=== PATIENT | male | born 1965 | race Caucasian/White ===

== ENCOUNTER 2020-02-24 20:30 | Emergency (ER) | payer MEDICAID, SELFPAY ==
[2020-02-24 20:35] VITALS: BP 113/71; PULSE 107; RESP 17; TEMP 36.5; O2SAT 100; BMI 23.3
--- NOTE | 2020-02-24 20:43 | XRR_ITS ---
PROCEDURE INFORMATION: Exam: XR Right Femur Exam date and time: 02/24/2020 10:00 PM Age: 54 years old Clinical indication: Injury or trauma; Fall; Initial encounter; Blunt trauma; Thigh or upper leg; Bilateral TECHNIQUE: Imaging protocol: XR Right femur. Views: 2 views. COMPARISON: No relevant prior studies available. FINDINGS: Bones/joints: The cross-table lateral view is overpenetrated and a knee joint effusion cannot be evaluated. The bone density is appropriate. No acute fracture or dislocation. No bony destructive changes. Soft tissues: No foreign body. No gas in the soft tissues. Other findings: No periosteal reaction. No osteomyelitis. XR/XR femur RT min 2V* [id number] IMPRESSION: No acute bony abnormality.
--- NOTE | 2020-02-24 20:43 | CTR_ITS ---
PROCEDURE INFORMATION: Exam: CT Chest Without Contrast Exam date and time: 02/24/2020 8:49 PM Age: 54 years old Clinical indication: Injury or trauma; Injury history: Thrown from horse; Initial encounter; Generalized; Blunt trauma (contusions or hematomas); Prior surgery; Surgery type: Cabg, cholecystectomy, appendectomy TECHNIQUE: Imaging protocol: Computed tomography of the chest without contrast. Radiation optimization: All CT scans at this facility use at least one of these dose optimization techniques: automated exposure control; mA and/or kV adjustment per patient size (includes targeted exams where dose is matched to clinical indication); or iterative reconstruction. COMPARISON: No relevant prior studies available. RADIATION DOSE METRICS: Total DLP (mGy-cm): 1975.32 FINDINGS: Tubes, catheters and devices: There is a small amount of air in the right subclavian vein probably from the presence of the IV catheter in the right upper extremity. Lungs: There is mild ground-glass opacity in the lungs compatible with pneumonitis, edema and/or atelectasis. There is a 3 mm subpleural ground-glass nodule right lung image 15. Pleural space: Unremarkable. No pneumothorax. No pleural effusion. Heart: Sternotomy wires and mediastinal surgical clips are present, consistent with previous coronary arterial bypass grafting. Aorta: Unremarkable. No aortic aneurysm. Lymph nodes: Small perifissural lymph nodes are noted. Bones/joints: Unremarkable. No acute fracture. Soft tissues: Unremarkable. IMPRESSION: 1. There is mild ground-glass opacity in the lungs compatible with pneumonitis, edema and/or atelectasis. 2. There is a 3 mm subpleural ground-glass nodule right lung.No routine follow-up is indicated. (Daisy et al., Fleischner Society, 2017) PROCEDURE INFORMATION: Exam: CT Abdomen And Pelvis Without Contrast Exam date and time: 02/24/2020 8:49 PM Age: 54 years old Clinical indication: Injury or trauma; Injury history: Thrown from horse; Initial encounter; Generalized; Blunt trauma (contusions or hematomas); Prior surgery; Surgery type: Cabg, cholecystectomy, appendectomy TECHNIQUE: Imaging protocol: Computed tomography of the abdomen and pelvis without contrast. Radiation optimization: All CT scans at this facility use at least one of these dose optimization techniques: automated exposure control; mA and/or kV adjustment per patient size (includes targeted exams where dose is matched to clinical indication); or iterative reconstruction. COMPARISON: No relevant prior studies available. RADIATION DOSE METRICS: Total DLP (mGy-cm): 1974.32 FINDINGS: Liver: Unremarkable.No mass. Gallbladder and bile ducts: There has been a cholecystectomy. There is no common bile duct dilation. Pancreas: Normal. No ductal dilation. Spleen: Normal. No splenomegaly. Adrenals: There is bilateral adrenal thickening compatible with hyperplasia. Kidneys and ureters: There is no evidence of hydronephrosis. There is no evidence of renal calcifications. There is nonspecific mild left perinephric fat stranding. Stomach and bowel: There is no evidence of intestinal perforation or obstruction. Appendix: There has been an appendectomy. Intraperitoneal space: Unremarkable. No free air. No significant fluid collection. Vasculature: There is a satisfactory appearance of the aortobifem graft. Lymph nodes: Unremarkable.No enlarged lymph nodes. Bladder: The bladder is normal. Reproductive: Unremarkable as visualized. Bones/joints: Unremarkable. No acute fracture. Soft tissues: Unremarkable. CT/CT chest abd pel wo con IMPRESSION: No acute abnormality in the abdomen or pelvis. Radiation Dose CTDIVOL = (mGy): DLP = 1975.32~1975.32 (mGy-cm)
--- NOTE | 2020-02-24 20:44 | W.ED.TRAUMA ---
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 He states he is got head face neck chest and abdomen pain. He states most pain is in his left jaw though. He states pain is sharp in nature and rates a 6 out of 10. States he also has pain to his left thigh. He is able to ambulate. Associated symptoms: Reports abdominal pain, back pain, chest pain and headache(s); Denies chills, dental pain or fever(s) Review of Systems Const: Denies: fever(s), chills, body aches or change in appetite Eyes: Denies: blurry vision or eye discomfort ENMT: Denies: throat pain or dental pain Card: Reports: chest pain Resp: Denies: dyspnea GI: Reports: abdominal pain : Denies: dysuria Musc: Reports: neck pain and back pain Skin/Breast: Denies: rash Neuro: Reports: headache(s) Psych: Denies: depression Ulysses/Lymph: Denies: easy bruising All/Imm: Denies: urticaria Physical Exam Const: COMMON NORMALS: no acute distress, patient oriented x3 and healthy appearing HENMT: COMMON NORMALS: normocephalic HEAD & SCALP: normocephalic OTHER: Abrasion to forehead Eye: COMMON NORMALS: Equal, round and reactive pupils present and EOMs intact bilaterally PUPIL: Yes Equal, round and reactive pupils present Neck/C-Spine: COMMON NORMALS: full ROM and supple Chest: COMMONS NORMALS: normal inspection of the chest OTHER: Tenderness over left chest Resp: COMMON NORMALS: normal respiratory effort, No retractions, No use of accessory muscles and clear to auscultation bilaterally AUSCULTATION: clear to auscultation bilaterally Cardio: COMMON NORMALS: regular rate, regular rhythm and No murmurs present (Cardio) RATE: regular rate RHYTHM: regular rhythm GI: COMMON NORMALS: Normal to inspection, nondistended, normoactive bowel sounds present, Soft to palpation and no masses PALPATION: Yes Soft to palpation OTHER: Diffuse mild tenderness Back/Pelvis: OTHER: Tenderness along spine with no obvious deformity Extremity: COMMON NORMALS: normal to inspection and full ROM Neuro: COMMON NORMALS: patient oriented x3, moves all extremities and no focal motor deficits Psych: COMMON NORMALS: mental status grossly normal, Normal thought process present and cooperative THOUGHT PROCESS: Normal thought process present Skin: COMMON NORMALS: no rashes or lesions noted and no wounds GENERAL SKIN EXAM: no rashes or lesions noted Procedures Jaw Reduction Time Out Performed: Yes Pre-Treatment Medications Used: other Technique used: downward anterior traction Reduction successful: No Procedural Sedation Indication: fracture/dislocation reduction ASA Class: II Time of Last PO Intake: 18:20 Preparation: groundwater monitoring technician applied, pulse oximeter and supplemental O2 applied IV Propofol dose (mg): 200 Patient Tolerated Procedure: well Complications: none Additional Comments: Repeat conscious sedation was done at 1210 150 of propofol was given patient tolerated procedure well with no complications. Blood pressure and oxygen saturation remained normal. MDM - Trauma MDM Narrative: Medical decision making narrative: Patient presents with a jaw dislocation that I was unable to reduce. Likely due to the edema around the joint from injury. I spoke to dentist and maxillofacial surgeon Dr. Jimmy Freeman states that due to the edema this will not build to be reduced at this time. He recommended soft diet the patient to do jaw exercises and ice and he will see him in the office Thursday or Thursday and attempt reduction once the swelling is went down. I informed patient of this plan patient is to return if worsening. He understands and agrees to plan. Other CT findings were normal. Lab Data: Labs: Lab Results 02/24/20 02/24/20 Range/Units 20:52 20:52 WBC 14.6 H (4.0-10.0) 10^3/ uL RBC 5.10 (4.1-5.3) 10^6/u L Hgb 10.2 L (11.7-16.6) g/dL Hct 35.1 L (42.0-52.0) % MCV 68.8 L (80-94) fL MCH 20.0 L (28.0-34.0) pg MCHC 29.1 L (30.0-36.0) g/dL RDW 20.2 H (12.1-15.1) % Plt Count 313 (130-400) 10^3/c mm MPV 10.7 H (7.4-10.4) fL Neut % (Auto) 68.8 % Lymph % (Auto) 18.6 % Meigs % (Auto) 9.2 % Eos % (Auto) 1.5 % Baso % (Auto) 0.3 % Neut # (Auto) 10.04 H (1.8-7.7) 10^3/u L Lymph # (Auto) 2.7 (0.8-4.8) 10^3/u L Meigs # (Auto) 1.3 H (0.2-0.9) 10^3/u L Eos # (Auto) 0.2 (0.0-0.8) 10^3/u L Baso # (Auto) 0.1 (0.0-0.1) 10^3/u L Nucleated RBC % (a uto) 0 % Nucleated RBCs # 0.0 /100WBC Sodium 135 L (136-145) mmol/L Potassium 4.1 (3.5-5.1) mmol/L Chloride 103 (98-107) mmol/L Carbon Dioxide 21 L (22-29) mmol/L Anion Gap 15.1 (5-19) BUN 9 (6-20) mg/dL Creatinine 0.6 L (0.7-1.2) mg/dL GFR Calculation 140.9 H (90-130) mL/min Glucose 289 H (65-115) mg/dL Calculated Osmolal ity 287 (285-295) mOsm/k g Calcium 9.0 (8.5-10.5) mg/dL Total Bilirubin 0.2 (0.15-1.2) mg/dL AST 10 (0-40) U/L ALT 10 (0-41) U/L Alkaline Phosphata se 129 (40-130) IU/L Total Protein 6.7 (6.6-8.7) g/dL Albumin 3.7 (3.5-5.2) g/dL Globulin 3.0 (1.3-4.6) g/dL Imaging Data^: CT Head: Attestation: I personally reviewed and interpreted this imaging study as follows: Radiologist's impression: [address] [address] [address] Scan Report Signed Patient: Cornell Hein Unit #: [id number] : 1965 Age/Sex: 54 / M ADM Date: 02/24/20 Loc: ER Room/Bed: Attending Dr: Ordering Provider/Ordering MD: Esmer Carson MD Date of Service: 02/24/20 Procedure(s): CT head wo con* [id number] Accession Number(s): [id number] Report Number: [id number] PROCEDURE INFORMATION: Exam: CT Head Without Contrast Exam date and time: 02/24/2020 8:50 PM Age: 54 years old Clinical indication: Injury or trauma; Injury history: Thrown from horse; Initial encounter; Blunt trauma (contusions or hematomas); With loss of consciousness; Not specified TECHNIQUE: Imaging protocol: Computed tomography of the head without contrast. Radiation optimization: All CT scans at this facility use at least one of these dose optimization techniques: automated exposure control; mA and/or kV adjustment per patient size (includes targeted exams where dose is matched to clinical indication); or iterative reconstruction. COMPARISON: No relevant prior studies available. RADIATION DOSE METRICS: Total DLP (mGy-cm): 853.09 FINDINGS: Brain: Normal. No hemorrhage. Unremarkable white matter. No mass effect. Ventricles: Normal. No ventriculomegaly. Bones/joints: Unremarkable. No acute fracture. Sinuses: Visualized sinuses are unremarkable. No fluid levels. Mastoid air cells: Visualized mastoid air cells are well aerated. Soft tissues: Unremarkable. CT/CT head wo con* [id number] IMPRESSION: No acute intracranial abnormality. ct facial : Attestation: I personally reviewed and interpreted this imaging study as follows: Radiologist's impression: [address] [address] [address] Scan Report Signed Patient: Cornell Hein Unit #: [id number] : 1965 Age/Sex: 54 / M ADM Date: 02/24/20 Loc: ER Room/Bed: Attending Dr: Ordering Provider/Ordering MD: Esmer Carson MD Date of Service: 02/24/20 Procedure(s): CT facial bones wo con* [id number] Accession Number(s): [id number] Report Number: [id number] PROCEDURE INFORMATION: Exam: CT Maxillofacial Without Contrast Exam date and time: 02/24/2020 8:50 PM Age: 54 years old Clinical indication: Injury or trauma; Injury history: Thrown from horse; Initial encounter; Blunt trauma (contusions or hematomas); Jaw; Left TECHNIQUE: Imaging protocol: Computed tomography images of the face without contrast. Radiation optimization: All CT scans at this facility use at least one of these dose optimization techniques: automated exposure control; mA and/or kV adjustment per patient size (includes targeted exams where dose is matched to clinical indication); or iterative reconstruction. COMPARISON: No relevant prior studies available. RADIATION DOSE METRICS: Total DLP (mGy-cm): 783.9 FINDINGS: Orbits: Orbits are normal. Globes are unremarkable. Bones/joints: There is dislocation of the left temporomandibular joint. The right mandibular condyle is in appropriate position. No acute mandible fracture. The zygoma, pterygoids, nasal bones and orbital cantrell are intact. No acute fracture is identified in the proximal cervical spine. Sinuses: Normal. No air-fluid levels. Mastoid air cells: The mastoid air cells are clear. Dental: There are dental caries with periapical lucencies and bony reabsorption surrounding the remaining posterior molars in the left mandible. Additional dental caries are scattered in the maxilla and mandible. Many teeth are missing. Soft tissues: There is soft tissue edema adjacent to the dislocated left mandibular condyle. CT/CT facial bones wo con* [id number] IMPRESSION: 1. There is dislocation of the left temporomandibular joint. 2. No acute mandible fracture. 3. There are multiple dental caries and in particular, there is marked periapical lucency and bony reabsorption in the left mandible adjacent to the posterior remaining left molars. ct c spine: Attestation: I personally reviewed and interpreted this imaging study as follows: Radiologist's impression: [address] [place] [address] CT Scan Report Signed Patient: Cornell Hein Unit #: [id number] : 1965 Age/Sex: 54 / M ADM Date: 02/24/20 Loc: ER Room/Bed: Attending Dr: Ordering Provider/Ordering MD: Esmer Carson MD Date of Service: 02/24/20 Procedure(s): CT cervical spin wo con* [id number] Accession Number(s): [id number] Report Number: [id number] PROCEDURE INFORMATION: Exam: CT Cervical Spine Without Contrast Exam date and time: 02/24/2020 8:49 PM Age: 54 years old Clinical indication: Injury or trauma; Injury history: Thrown from horse; Initial encounter; Blunt trauma TECHNIQUE: Imaging protocol: Computed tomography images of the cervical spine without contrast. Radiation optimization: All CT scans at this facility use at least one of these dose optimization techniques: automated exposure control; mA and/or kV adjustment per patient size (includes targeted exams where dose is matched to clinical indication); or iterative reconstruction. COMPARISON: No relevant prior studies available. RADIATION DOSE METRICS: Total DLP (mGy-cm): 619.11 FINDINGS: Tubes, catheters and devices: There is a small amount of air in the right subclavian vein presumed to be from IV catheter. Vertebrae: There is a dislocation of the left temporomandibular joint. No subluxation. Discs/Spinal canal/Neural foramina: [id number] degenerative changes are noted in the cervical spine. Soft tissues: Unremarkable. Lungs: Mild ground-glass opacities are noted in the lung apices and may reflect atelectasis or pneumonitis. CT/CT cervical spin wo con* [id number] IMPRESSION: 1. There is a dislocation of the left temporomandibular joint. 2. No acute bony abnormality is identified in the cervical spine. CT Chest: Radiologist's impression: [place] [address] CT Scan Report Signed Patient: Cornell Hein Unit #: [id number] : 1965 Age/Sex: 54 / M ADM Date: 02/24/20 Loc: ER Room/Bed: Attending Dr: Ordering Provider/Ordering MD: Esmer Carson MD Date of Service: 02/24/20 Procedure(s): CT chest abd pel wo con Accession Number(s): [id number] Report Number: [id number] PROCEDURE INFORMATION: Exam: CT Chest Without Contrast Exam date and time: 02/24/2020 8:49 PM Age: 54 years old Clinical indication: Injury or trauma; Injury history: Thrown from horse; Initial encounter; Generalized; Blunt trauma (contusions or hematomas); Prior surgery; Surgery type: Cabg, cholecystectomy, appendectomy TECHNIQUE: Imaging protocol: Computed tomography of the chest without contrast. Radiation optimization: All CT scans at this facility use at least one of these dose optimization techniques: automated exposure control; mA and/or kV adjustment per patient size (includes targeted exams where dose is matched to clinical indication); or iterative reconstruction. COMPARISON: No relevant prior studies available. RADIATION DOSE METRICS: Total DLP (mGy-cm): 1975.32 FINDINGS: Tubes, catheters and devices: There is a small amount of air in the right subclavian vein probably from the presence of the IV catheter in the right upper extremity. Lungs: There is mild ground-glass opacity in the lungs compatible with pneumonitis, edema and/or atelectasis. There is a 3 mm subpleural ground-glass nodule right lung image 15. Pleural space: Unremarkable. No pneumothorax. No pleural effusion. Heart: Sternotomy wires and mediastinal surgical clips are present, consistent with previous coronary arterial bypass grafting. Aorta: Unremarkable. No aortic aneurysm. Lymph nodes: Small perifissural lymph nodes are noted. Bones/joints: Unremarkable. No acute fracture. Soft tissues: Unremarkable. IMPRESSION: 1. There is mild ground-glass opacity in the lungs compatible with pneumonitis, edema and/or atelectasis. 2. There is a 3 mm subpleural ground-glass nodule right lung.No routine follow-up is indicated. (Daisy et al., Fleischner Society, 2017) PROCEDURE INFORMATION: Exam: CT Abdomen And Pelvis Without Contrast Exam date and time: 02/24/2020 8:49 PM Age: 54 years old Clinical indication: Injury or trauma; Injury history: Thrown from horse; Initial encounter; Generalized; Blunt trauma (contusions or hematomas); Prior surgery; Surgery type: Cabg, cholecystectomy, appendectomy TECHNIQUE: Imaging protocol: Computed tomography of the abdomen and pelvis without contrast. Radiation optimization: All CT scans at this facility use at least one of these dose optimization techniques: automated exposure control; mA and/or kV adjustment per patient size (includes targeted exams where dose is matched to clinical indication); or iterative reconstruction. COMPARISON: No relevant prior studies available. Discharge Plan Discharge Patient Disposition: Home Clinical Impression: Dislocated jaw Qualifiers: Encounter type: initial encounter Qualified Code(s): S03.00XA - Dislocation of jaw, unspecified side, initial encounter Condition: Stable Prescriptions: [place] 5-325 mg tablet 1 tab PO Q6H PRN (Reason: pain) Qty: 10 RF: 0 Discharge Orders: Discharge Order (Routine); Ordered 02/25/20 Ordered By: Esmer Carson Referrals: jimmy freeman [Other] Discharge Diet: Advance as tolerated Discharge Activity: Resume usual activity Patient Instructions: Mandibular Dislocation (ED) Coding Level of Care Code ED Gang Bore Operator for Claudio Ruano Exam Comprehensive
[2020-02-24] MEDS: ondansetron 2 mg/ML SDV 2 mL 4 MG IVP (21:15)
[2020-02-24 21:16] VITALS: RESP 18
[2020-02-24] MEDS: HYDROmorphone 1 mg/mL INJ 1 mL IVP (21:16)
[2020-02-24] MEDS: sodium chloride 0.9% 1,000 ML 999 ML IV (21:18)
[2020-02-24 21:21] LABS: Basophils # 0.1 10^3/uL (0.0-0.1); Basophils % 0.3 %; Eosinophils # 0.2 10^3/uL (0.0-0.8); Eosinophils % 1.5 %; Hematocrit 35.1 % (42.0-52.0); Hemoglobin 10.2 g/dL (11.7-16.6); Lymphocytes # 2.7 10^3/uL (0.8-4.8); Lymphocytes % 18.6 %; Mean Corpuscular HGB Conc 29.1 g/dL (30.0-36.0); Mean Corpuscular Volume 68.8 fL (80-94); Mean Platelet Volume 10.7 fL (7.4-10.4); Monocytes # 1.3 10^3/uL (0.2-0.9); Monocytes % 9.2 %; Neutrophils # 10.04 10^3/uL (1.8-7.7); Neutrophils % 68.8 %; Nucleated Red Blood Cells % 0 %; Platelet Count 313 10^3/cmm (130-400); Red Cell Distribution Width 20.2 % (12.1-15.1); White Blood Count 14.6 10^3/uL (4.0-10.0)
[2020-02-24 21:44] LABS: Alanine Aminotransferase 10 U/L (0-41); Albumin Level 3.7 g/dL (3.5-5.2); Alkaline Phosphatase 129 IU/L (40-130); Anion Gap 15.1 (5-19); Aspartate Amino Transferase 10 U/L (0-40); Blood Urea Nitrogen 9 mg/dL (6-20); Carbon Dioxide 21 mmol/L (22-29); Chloride 103 mmol/L (98-107); Glomerular Filtration Rate 140.9 mL/min (90-130); Glucose 289 mg/dL (65-115); Osmolality Calculated 287 mOsm/kg (285-295); Potassium 4.1 mmol/L (3.5-5.1); Sodium 135 mmol/L (136-145); Total Bilirubin 0.2 mg/dL (0.15-1.2); Total Protein 6.7 g/dL (6.6-8.7)
[2020-02-24 22:16] VITALS: RESP 17
[2020-02-24] MEDS: HYDROmorphone 1 mg/mL INJ 1 mL 0.5 MG IVP ×2 (22:16→23:15)
[2020-02-24] MEDS: propofol 10 mg/mL SDV 20 mL 60 MG IVP (22:32)
--- NOTE | 2020-02-24 22:53 | XRR_ITS ---
PROCEDURE INFORMATION: Exam: XR Left Mandible, Minimum of 4 Views, Complete Exam date and time: 02/24/2020 11:11 PM Age: 54 years old Clinical indication: Condition or disease; Other: Dislocation; Patient HX: Post reduction; Additional info: Post reductin TECHNIQUE: Imaging protocol: XR of the Left mandible, minimum of 4 views. Complete exam. COMPARISON: CT facial bones wo con* [id number] 02/24/2020 9:26 PM FINDINGS: Sinuses: Well aerated. No opacification. Bones/joints: The left temporomandibular dislocation continues unchanged. The left mandibular condyle is perching on the edge of the anterior temporal bone/TMJ joint. Right mandibular condyle is in appropriate position. No fracture. Soft tissues: Unremarkable. XR/XR mandible min 4V [id number] IMPRESSION: The left temporomandibular dislocation continues unchanged. No fracture.
[2020-02-24 23:15] VITALS: RESP 16
[2020-02-24 23:22] VITALS: BP 123/68; PULSE 77; RESP 14; O2SAT 98
[2020-02-25 00:01] VITALS: RESP 16
[2020-02-25] MEDS: HYDROmorphone 1 mg/mL INJ 1 mL 0.5 MG IVP (00:01)
[2020-02-25 00:23] VITALS: BP 129/80; PULSE 72; O2SAT 99
[2020-02-25] MEDS: HYDROcodone-acetaminophen 7.5-325 mg Tablet 2 TAB PO (01:12)
--- NOTE | 2020-02-29 08:48 | DCPLANNER ---
hvac project manager had message to schedule a follow up appointment for patient with a physician in [place]. Alejandra Richard, attempted to contact patient, and was unable to reach patient or leave a voicemail for patient. hvac project manager called patient and was able to speak with patient. hvac project manager spoke with patient to confirm that patient wanted case picker to schedule follow up. Patient stated that he would take care of it itself.
== END 2020-02-25 01:01 | disposition home or self-care (01) ==
PROVIDERS: Emergency Provider Emergency Medicine
DX: S03.02XA Dislocation of jaw, left side, initial encounter (principal); V80.919A Animal-rider injured in unspecified transport accident, initial encounter
CPT/HCPCS: 12345; 21480; 70110; 70450; 70486; 71250; 72125; 73552; 74176; 80053; 85025; 96361; 96374; 96375; 99283; 99284; J1170; J2405; J2704; J7030

== ENCOUNTER 2020-12-27 13:16 | Observation (INO) | payer MEDICAID, SELFPAY ==
[2020-12-27] VITALS (8 sets, daily range): BP systolic 124–161; BP diastolic 75–96; PULSE 84–113; RESP 15–18; TEMP 36.4–36.9; O2SAT 96–99; BMI 25.8
--- NOTE | 2020-12-27 13:35 | XR_ITS ---
WS: [id number] Portable AP upright chest, 12/27/2020 Clinical Data: cp Comparison: None. Findings: No nodules, masses or effusions are seen. The heart is normal. The pulmonary vascularity is not increased. No pneumonia or pneumothorax is seen. Midline sternotomy sutures and mediastinal clip s are seen. There is a small stent in a coronary artery. Monitor leads are on the chest wall. XR/XR chest 1V portable [id number] Impression: Atherosclerosis.
--- NOTE | 2020-12-27 13:36 | ECG_ITS ---
[facility] Test Date: 2020-12-27 Pat Name: Cornell Hein Department: Room: Gender: Male Surgery Teacher: : 1965 Requested By: Freddy Reardon Order Number: [id number] Bethea MD: Alex Álvarez M.D. Measurements Intervals [place] Rate: 110 P: 52 CT: 146 QRS: -25 QRSD: 76 T: 84 QT: 306 QTc: 414 Interpretive Statements SINUS TACHYCARDIA WITH OCCASIONAL VENTRICULAR PREMATURE COMPLEXES ANTEROSEPTAL MYOCARDIAL INFARCTION [40+ ms Q WAVE IN V1-V4], OF INDETERMINATE AGE No previous ECG available for comparison Electronically Signed On 12-27-2020 18:39:57 CDT by Alex Álvarez M.D. [id number]
[2020-12-27 13:49] LABS: Basophils # 0.1 10^3/uL (0.0-0.1); Basophils % 0.6 %; Eosinophils # 0.2 10^3/uL (0.0-0.8); Eosinophils % 1.3 %; Hematocrit 48.3 % (42.0-52.0); Hemoglobin 16.4 g/dL (11.7-16.6); Lymphocytes # 2.7 10^3/uL (0.8-4.8); Lymphocytes % 21.4 %; Mean Corpuscular Hemoglobin 28.4 pg (28.0-34.0); Mean Corpuscular Volume 83.6 fL (80-94); Mean Platelet Volume 10.9 fL (7.4-10.4); Monocytes # 1.2 10^3/uL (0.2-0.9); Monocytes % 9.4 %; Neutrophils # 8.23 10^3/uL (1.8-7.7); Neutrophils % 66.1 %; Nucleated Red Blood Cells % 0 %; Platelet Count 292 10^3/cmm (130-400); Red Blood Count 5.78 10^6/uL (4.1-5.3); Red Cell Distribution Width 14.4 % (12.1-15.1); White Blood Count 12.5 10^3/uL (4.0-10.0)
[2020-12-27] MEDS: nitroglycerin 0.4 mg sublingual Tablet SUBLINGUAL (13:50)
[2020-12-27] MEDS: HYDROmorphone 1 mg/mL INJ 1 mL 0.5 MG IVP ×3 (13:59→21:47)
[2020-12-27 14:20] LABS: INR 0.96 (0.8-1.2)
[2020-12-27 14:36] LABS: Troponin(5th) Baseline 16 ng/L (0-15)
[2020-12-27 14:42] LABS: Alanine Aminotransferase 14 U/L (0-41); Albumin Level 4.2 g/dL (3.5-5.2); Alkaline Phosphatase 157 IU/L (40-130); Anion Gap 18.4 (5-19); Aspartate Amino Transferase 10 U/L (0-40); Blood Urea Nitrogen 13 mg/dL (6-20); Calcium 9.1 mg/dL (8.5-10.5); Carbon Dioxide 24 mmol/L (22-29); Chloride 91 mmol/L (98-107); Globulin 2.8 g/dL (1.3-4.6); Glomerular Filtration Rate 87.9 mL/min (90-130); Glucose 433 mg/dL (65-115); NT Pro B Type Natriuretic Pept 361 pg/mL (0-125); Osmolality Calculated 289 mOsm/kg (285-295); Potassium 3.4 mmol/L (3.5-5.1); Sodium 130 mmol/L (136-145); Total Bilirubin 0.3 mg/dL (0.15-1.2)
[2020-12-27 14:49] LABS: SARS Covid-2 Antigen Negative (Negative)
[2020-12-27 14:59] LABS: Add Urine Microscopic? NO; Charge for UA Resulting for Rev
[2020-12-27 15:02] LABS: Bilirubin Urine Neg (Negative); Blood Urine Neg (Negative); Glucose Urine UA 4+ (Normal); Ketones Urine Negative (Negative); Leukocyte Esterase Urine Negative (Negative); Nitrate Urine Negative (Negative); Protein Urine Neg (Negative); Specific Gravity, Urine 1.015 (1.005-1.030); Urine Appearance Clear (CLEAR); Urine Color Straw (Yellow); Urobilinogen Urine Norm (Negative); pH Urine 5 (5-7)
[2020-12-27 15:23] LABS: D Dimer 0.35 ug/mIFEU (0-0.59)
--- NOTE | 2020-12-27 15:36 | ECG_ITS ---
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 Measurements Intervals [place] Rate: 91 P: 56 [place]: 150 QRS: -34 QRSD: 77 T: 98 QT: 324 QTc: 399 Interpretive Statements SINUS RHYTHM MARKED LEFT AXIS DEVIATION [QRS AXIS < -30] PATTERN CONSISTENT WITH PULMONARY DISEASE NONSPECIFIC T-WAVE ABNORMALITY Compared to ECG 12/27/2020 14:17:24 Left-axis deviation now present T-wave abnormality now present Sinus tachycardia no longer present Ventricular premature complex(es) no longer present Myocardial infarct finding no longer present Electronically Signed On 12-27-2020 18:57:58 CDT by Alex Álvarez M.D. [id number]
--- NOTE | 2020-12-27 16:05 | ED_ITS ---
HPI - Chest Pain General: Chief Complaint: Chest Pain Stated Complaint: chest pain Time Seen by Provider: 12/27/20 13:35 History of Present Illness: HPI narrative: The patient is a 55-year-old male with past medical history coronary artery disease, CABG, PEs on Eliquis and peripheral arterial disease, diabetes on insulin. He comes to the ER complaining of left-sided chest pain radiating to his neck after he was loading horses on a trailer. He says the pain feels similar to his previous AL and he has had several MIs with stenting. 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 Timing of current episode: constant Prior episodes: Yes Onset: during rest and during exertion Pain location: left chest Pain radiation: left arm and neck Severity: severe Quality: heaviness and similar to prior AL Relieving factors: nothing Exacerbating factors: nothing Context: history of DVT/PE Associated symptoms: Reports no associated symptoms; Deny abdominal pain, dyspnea or palpitations Treatment prior to arrival: aspirin (aspirin 325) Review of Systems General: Reports: 10 or more systems reviewed and unremarkable except in HPI and below Const: Denies: fatigue Eyes: Denies: change in vision, blurry vision or eye redness ENMT: Denies: throat pain, swelling of lips/tongue, ear or mastoid pain or nasal congestion Card: Reports: chest pain; Denies: palpitations, irregular heart rhythm, edema, dyspnea on exertion or orthopnea Resp: Denies: dyspnea, productive cough or non-productive cough GI: Denies: abdominal pain, diarrhea or GI cramping : Denies: flank pain, urinary frequency or urinary urgency Musc: Denies: neck pain, back pain, extremity pain, joint pain, joint redness, limited range of motion or muscle weakness Skin/Breast: Denies: rash, pruritus, erythema, skin pain or skin tenderness Neuro: Denies: headache(s), numbness in extremities, weakness in extremities, sensory changes, difficulty walking, dizziness, confusion or Slurred speech present Psych: Denies: anxiety or depression Endo: Denies: polyuria All/Imm: Denies: urticaria, throat swelling or tongue swelling PFSH ED PFSH: Medical History (Updated 12/27/20 @ 20:31 by Freddy Reardon MD) Chest pain Diabetes Physical Exam Const: COMMON NORMALS: no acute distress, average body habitus, patient oriented x3, no limitations, healthy appearing, alert and well nourished GENERAL APPEARANCE: cooperative, comfortable, well kempt and well developed ORIENTATION/CONSCIOUSNESS: Yes awake, Yes oriented to person, Yes oriented to place and Yes oriented to time HENMT: COMMON NORMALS: normocephalic, external ears normal and Normal external nose present HEAD & SCALP: normal to inspection and normocephalic NOSE: Normal external nose present EXTERNAL EAR: Yes external ears normal MOUTH: Normal oral and palatal mucosa present THROAT: posterior oropharynx normal Eye: COMMON NORMALS: Equal, round and reactive pupils present and EOMs intact bilaterally GENERAL EYE: appearance normal, both eyes and all related structures PUPIL: Yes Equal, round and reactive pupils present Neck/C-Spine: COMMON NORMALS: full ROM, no lymphadenopathy, no meningeal signs and no JVD GENERAL: Yes normal visual inspection Lymph: LYMPHATIC: no lymphadenopathy noted Chest: COMMONS NORMALS: normal inspection of the chest and normal palpation of entire chest wall Resp: COMMON NORMALS: normal respiratory effort, No retractions, No use of accessory muscles, clear to auscultation bilaterally and percussion normal EFFORT & INSPECTION: Yes able to speak in complete sentences AUSCULTATION: clear to auscultation bilaterally PERCUSSION: percussion normal Cardio: COMMON NORMALS: no JVD, regular rate, regular rhythm, S1 normal heart sound present, S2 normal heart sound present and Peripheral pulses 2+ throughout RATE: regular rate RHYTHM: regular rhythm HEART SOUNDS: S1 normal heart sound present and S2 normal heart sound present PERIPHERAL PULSES: Peripheral pulses 2+ throughout GI: COMMON NORMALS: Normal to inspection, nondistended, normoactive bowel sounds present, Soft to palpation, non-tender and no masses INSPECTION: Yes normal to inspection PALPATION: Yes Soft to palpation : COMMON NORMALS: Yes no CVA tenderness BLADDER/KIDNEY EXAM: Yes no CVA tenderness Back/Pelvis: COMMON NORMALS: no CVA tenderness, thoracic and lumbar spine normal to inspection, no thoracic nor lumbar tenderness and thoraco-lumbar ROM normal Extremity: COMMON NORMALS: normal to inspection, full ROM, capillary refill normal, no joint enlargement and no pedal edema GENERAL: Yes normal exam except as noted Neuro: COMMON NORMALS: patient oriented x3, CN's II-XII intact bilaterally, moves all extremities, no focal motor deficits, no sensory deficits noted and gait normal SENSORIUM/ORIENTATION: Yes alert, Yes oriented to person, Yes oriented to place and Yes oriented to time MENINGEAL SIGNS: Yes no meningeal signs Psych: COMMON NORMALS: mental status grossly normal, Normal thought process present, cooperative, normal affect and speech normal APPEARANCE: Yes well kempt ATTITUDE: Yes calm SPEECH: Yes normal speech THOUGHT PROCESS: Normal thought process present Skin: COMMON NORMALS: no rashes or lesions noted GENERAL SKIN EXAM: no rashes or lesions noted Course Vital Signs: Vital signs: Vital Signs Temperature 97.6 F 12/27/20 13:26 Pulse Rate 98 12/27/20 19:03 Respiratory Rate 18 12/27/20 19:03 Blood Pressure 136/87 12/27/20 19:03 Pulse Oximetry 98 12/27/20 19:03 MDM - Chest Pain MDM Narrative: Medical decision making narrative: This patient is particularly high risk with several heart attacks in the past, multiple stenting procedures, and CABG surgery. His troponins trended normal and EKG shows no acute ST elevations though he continues to have chest pain which is concerning. Discussed with Dr. Baltazar who accepts for observation overnight. He is also from out of town and has no local records which makes his history more difficult. Lab Data: Labs: Lab Results 12/27/20 12/27/20 12/27/20 Range/Units 13:42 13:42 13:42 WBC 12.5 H (4.0-10.0) 10^3/ uL RBC 5.78 H (4.1-5.3) 10^6/u L Hgb 16.4 (11.7-16.6) g/dL Hct 48.3 (42.0-52.0) % MCV 83.6 (80-94) fL MCH 28.4 (28.0-34.0) pg MCHC 34.0 (30.0-36.0) g/dL RDW 14.4 (12.1-15.1) % Plt Count 292 (130-400) 10^3/c mm MPV 10.9 H (7.4-10.4) fL Neut % (Auto) 66.1 % Lymph % (Auto) 21.4 % [place] % (Auto) 9.4 % Eos % (Auto) 1.3 % Baso % (Auto) 0.6 % Neut # (Auto) 8.23 H (1.8-7.7) 10^3/u L Lymph # (Auto) 2.7 (0.8-4.8) 10^3/u L [place] # (Auto) 1.2 H (0.2-0.9) 10^3/u L Eos # (Auto) 0.2 (0.0-0.8) 10^3/u L Baso # (Auto) 0.1 (0.0-0.1) 10^3/u L Nucleated RBC % (a uto) 0 % Nucleated RBCs # 0.0 /100WBC PT (12.1-14.9) SECO NDS INR (0.8-1.2) D-Dimer (0-0.59) ug/mIFE U Sodium 130 L (136-145) mmol/L Potassium 3.4 L (3.5-5.1) mmol/L Chloride 91 L (98-107) mmol/L Carbon Dioxide 24 (22-29) mmol/L Anion Gap 18.4 (5-19) BUN 13 (6-20) mg/dL Creatinine 0.9 (0.7-1.2) mg/dL GFR Calculation 87.9 L (90-130) mL/min Glucose 433 H (65-115) mg/dL Calculated Osmolal ity 289 (285-295) mOsm/k g Calcium 9.1 (8.5-10.5) mg/dL Total Bilirubin 0.3 (0.15-1.2) mg/dL AST 10 (0-40) U/L ALT 14 (0-41) U/L Alkaline Phosphata se 157 H (40-130) IU/L Troponin T Baselin e 16 H (0-15) ng/L Troponin T 120 Min [place] (0-15) ng/L Delta Troponin T (0-10) ABS# NT-Pro-B Natriuret Pep 361 H (0-125) pg/mL Total Protein 7.0 (6.6-8.7) g/dL Albumin 4.2 (3.5-5.2) g/dL Globulin 2.8 (1.3-4.6) g/dL Urine Color (Yellow) Urine Appearance (CLEAR) Urine pH (5-7) Ur Specific Gravit y (1.005-1.030) Urine Protein (Negative) Urine Glucose (UA) (Normal) Urine Ketones (Negative) Urine Blood (Negative) Urine Nitrate (Negative) Urine Bilirubin (Negative) Urine Urobilinogen (Negative) mg/dL Ur Leukocyte Cindy ase (Negative) SARS-CoV-2 Ag (Rap id) (Negative) 12/27/20 12/27/20 12/27/20 Range/Units 13:54 13:54 14:15 WBC (4.0-10.0) 10^3/ uL RBC (4.1-5.3) 10^6/u L Hgb (11.7-16.6) g/dL Hct (42.0-52.0) % MCV (80-94) fL MCH (28.0-34.0) pg MCHC (30.0-36.0) g/dL RDW (12.1-15.1) % Plt Count (130-400) 10^3/c mm MPV (7.4-10.4) fL Neut % (Auto) % Lymph % (Auto) % [place] % (Auto) % Eos % (Auto) % Baso % (Auto) % Neut # (Auto) (1.8-7.7) 10^3/u L Lymph # (Auto) (0.8-4.8) 10^3/u L [place] # (Auto) (0.2-0.9) 10^3/u L Eos # (Auto) (0.0-0.8) 10^3/u L Baso # (Auto) (0.0-0.1) 10^3/u L Nucleated RBC % (a uto) % Nucleated RBCs # /100WBC PT 13.10 (12.1-14.9) SECO NDS INR 0.96 (0.8-1.2) D-Dimer 0.35 (0-0.59) ug/mIFE U Sodium (136-145) mmol/L Potassium (3.5-5.1) mmol/L Chloride (98-107) mmol/L Carbon Dioxide (22-29) mmol/L Anion Gap (5-19) BUN (6-20) mg/dL Creatinine (0.7-1.2) mg/dL GFR Calculation (90-130) mL/min Glucose (65-115) mg/dL Calculated Osmolal ity (285-295) mOsm/k g Calcium (8.5-10.5) mg/dL Total Bilirubin (0.15-1.2) mg/dL AST (0-40) U/L ALT (0-41) U/L Alkaline Phosphata se (40-130) IU/L Troponin T Baselin e (0-15) ng/L Troponin T 120 Min [place] (0-15) ng/L Delta Troponin T (0-10) ABS# NT-Pro-B Natriuret Pep (0-125) pg/mL Total Protein (6.6-8.7) g/dL Albumin (3.5-5.2) g/dL Globulin (1.3-4.6) g/dL Urine Color (Yellow) Urine Appearance (CLEAR) Urine pH (5-7) Ur Specific Gravit y (1.005-1.030) Urine Protein (Negative) Urine Glucose (UA) (Normal) Urine Ketones (Negative) Urine Blood (Negative) Urine Nitrate (Negative) Urine Bilirubin (Negative) Urine Urobilinogen (Negative) mg/dL Ur Leukocyte Cindy ase (Negative) SARS-CoV-2 Ag (Rap id) Negative (Negative) 12/27/20 12/27/20 Range/Units 14:47 15:52 WBC (4.0-10.0) 10^3/ uL RBC (4.1-5.3) 10^6/u L Hgb (11.7-16.6) g/dL Hct (42.0-52.0) % MCV (80-94) fL MCH (28.0-34.0) pg MCHC (30.0-36.0) g/dL RDW (12.1-15.1) % Plt Count (130-400) 10^3/c mm MPV (7.4-10.4) fL Neut % (Auto) % Lymph % (Auto) % [place] % (Auto) % Eos % (Auto) % Baso % (Auto) % Neut # (Auto) (1.8-7.7) 10^3/u L Lymph # (Auto) (0.8-4.8) 10^3/u L [place] # (Auto) (0.2-0.9) 10^3/u L Eos # (Auto) (0.0-0.8) 10^3/u L Baso # (Auto) (0.0-0.1) 10^3/u L Nucleated RBC % (a uto) % Nucleated RBCs # /100WBC PT (12.1-14.9) SECO NDS INR (0.8-1.2) D-Dimer (0-0.59) ug/mIFE U Sodium (136-145) mmol/L Potassium (3.5-5.1) mmol/L Chloride (98-107) mmol/L Carbon Dioxide (22-29) mmol/L Anion Gap (5-19) BUN (6-20) mg/dL Creatinine (0.7-1.2) mg/dL GFR Calculation (90-130) mL/min Glucose (65-115) mg/dL Calculated Osmolal ity (285-295) mOsm/k g Calcium (8.5-10.5) mg/dL Total Bilirubin (0.15-1.2) mg/dL AST (0-40) U/L ALT (0-41) U/L Alkaline Phosphata se (40-130) IU/L Troponin T Baselin e (0-15) ng/L Troponin T 120 Min [place] 14.27 (0-15) ng/L Delta Troponin T -1.73 L (0-10) ABS# NT-Pro-B Natriuret Pep (0-125) pg/mL Total Protein (6.6-8.7) g/dL Albumin (3.5-5.2) g/dL Globulin (1.3-4.6) g/dL Urine Color Straw (Yellow) Urine Appearance Clear (CLEAR) Urine pH 5 (5-7) Ur Specific Gravit y 1.015 (1.005-1.030) Urine Protein Neg (Negative) Urine Glucose (UA) 4+ H (Normal) Urine Ketones Negative (Negative) Urine Blood Neg (Negative) Urine Nitrate Negative (Negative) Urine Bilirubin Neg (Negative) Urine Urobilinogen Norm (Negative) mg/dL Ur Leukocyte Cindy ase Negative (Negative) SARS-CoV-2 Ag (Rap id) (Negative) Discharge Plan Discharge Patient Disposition: Placed in Observation Admit Provider: Ahmed,Arif Clinical Impression: Chest pain Coding Level of Care Code ED Well Blower for Chg Fwd Exam Comprehensive
[2020-12-27 16:40] LABS: Troponin 5 2HR 14.27 ng/L (0-15)
[2020-12-27 16:41] LABS: Troponin 5 2HR Delta -1.73 ABS# (0-10)
[2020-12-27] MEDS: pregabalin 150 mg Capsule 300 MG PO (17:53)
[2020-12-27] MEDS: HYDROcodone-acetaminophen 5-325 mg Tablet 1 TAB PO (17:53)
--- NOTE | 2020-12-27 18:55 | P.HP_ITS ---
Providers/Chief Complaint Admitting Physician: Charles Baltazar MD Chief Complaint: chest pain History of Present Illness Cornell Hein is a 55 year old male with pmh of CAD, DVT on eliquis, DM presents to hospital with complaints of left sided chest pain since this afternoon. He reports he was loading horses and had left sided chest pain that radiated to his neck and left shoulder. He has previous [place] and CABG. He also has DM, and dvt history. Recently had trauma from horse that resulted in partial paralysis. Review of Systems General: Reports: 10 or more systems reviewed and unremarkable except in HPI and below Const: Denies: fever(s) or chills Eyes: Denies: change in vision or blurry vision ENMT: Denies: throat pain or mouth pain Card: Reports: chest pain and palpitations Resp: Denies: dyspnea or productive cough GI: Denies: abdominal pain or nausea : Denies: flank pain Musc: Denies: neck pain Skin/Breast: Denies: rash or pruritus Medications/Allergies Home Medications Medication Instructions Recorded Confirmed Last Taken Type apixaban [Eliquis] 5 mg PO BID 12/27/20 12/27/20 12/26/20 History aspirin 81 mg PO DAILY 12/27/20 12/27/20 12/26/20 History atorvastatin 40 mg PO DAILY 12/27/20 12/27/20 12/26/20 History clopidogrel [Plavix] 75 mg PO DAILY 12/27/20 12/27/20 12/26/20 History insulin glargine [Lantus U-100 20 unit SUBCUT BID 12/27/20 12/27/20 12/26/20 History Insulin] oxycodone-acetaminophen [Percocet] 1 tab PO TID PRN 12/27/20 12/27/20 Unknown History pregabalin [Lyrica] 300 mg PO BID 12/27/20 12/27/20 12/26/20 History ranitidine HCl 150 mg PO DAILY PRN 12/27/20 12/27/20 Unknown History Allergies Allergy/AdvReac Type Severity Reaction Status Date / Time fentanyl Allergy ALGY-Difficulty Verified 12/27/20 13:29 Breathing Iodinated Contrast Media Allergy ALGY-Rash Verified 02/24/20 20:47 morphine Allergy ALGY-Difficulty Verified 02/24/20 22:49 Breathing PFSH Acute PFSH: Medical History (Updated 12/27/20 @ 19:25 by Charles Baltazar MD) Chest pain Diabetes Vitals/I&O/Wt Last Vital Signs Temp 97.6 F 12/27/20 13:26 Pulse 87 12/27/20 18:53 Resp 18 12/27/20 18:53 BP 148/84 12/27/20 18:53 Pulse Ox 98 12/27/20 18:53 Weight last 48 hrs Weight 160 lb Physical Exam Const: COMMON NORMALS: no acute distress Chest: COMMONS NORMALS: normal inspection of the chest and normal palpation of entire chest wall Resp: COMMON NORMALS: normal respiratory effort and No retractions Cardio: COMMON NORMALS: no JVD, regular rate and regular rhythm GI: COMMON NORMALS: Soft to palpation and non-tender INSPECTION: Yes normal to inspection Neuro: COMMON NORMALS: patient oriented x3 and CN's II-XII intact bilaterally Psych: COMMON NORMALS: mental status grossly normal and Normal thought process present Skin: COMMON NORMALS: no rashes or lesions noted Data : 12/27/20 13:42 12/27/20 13:42 A&P Assessment and plan (1) Chest pain: Status: Acute (2) CAD (coronary artery disease): Status: Acute (3) Diabetes: Status: Acute Additional A&P Information 55 yo male with pmh of DVT, CAD presents to ER with complaints of chest pain. He has multiple comorbidities and risk factors. #Chest pain #CAD #DM #history of DVT #history of LE weakness 1. admit for observation 2. serial cardiac enzymes 3. PRN analgesics 4. asa, statin, eliquis 5. fsbs, ssi 6. NPO after midnight 7. cardiac stress test Attestations Medical Necessity Statement*: Cornell Sorensen Angel Luis is being changed to inpatient status as stay will now exceed 2 midnights. Ongoing hospital care is necessary for chest pain Coding Level of Care Code Acute Switchboard Operator Supervisor for Claudio Ruano Diagnoses Chest pain R07.9 CAD (coronary artery disease) I25.10 Diabetes E11.9
--- NOTE | 2020-12-27 19:36 | ECG_ITS ---
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 Measurements Intervals [place] Rate: 90 P: 56 MT: 153 QRS: -26 QRSD: 70 T: 78 QT: 297 QTc: 364 Interpretive Statements SINUS RHYTHM POSSIBLE LEFT ATRIAL ENLARGEMENT [-0.1mV P WAVE IN V1/V2] BORDERLINE LEFT AXIS DEVIATION [QRS AXIS < -20] LOW QRS VOLTAGE IN PRECORDIAL LEADS [QRS DEFLECTION < 1.0 mV IN CHEST LEADS] NONSPECIFIC T-WAVE ABNORMALITY Compared to ECG 12/27/2020 17:32:13 Low QRS voltage now present T-wave abnormality still present Electronically Signed On 12-27-2020 20:29:22 CDT by Alex Álvarez M.D. [email or web address]
[2020-12-27 21:16] LABS: Glucose Point of Care 400 mg/dL (70-110)
[2020-12-27] MEDS: oxyCODONE-APAP 10-325 mg Tablet 1 TAB PO (23:00)
[2020-12-27 23:04] LABS: Glucose Point of Care 243 mg/dL (70-110)
[2020-12-28] VITALS (19 sets, daily range): BP systolic 104–128; BP diastolic 57–79; PULSE 77–99; RESP 15–22; TEMP 36.4–37.1; O2SAT 95–98
[2020-12-28] MEDS: HYDROmorphone 1 mg/mL INJ 1 mL 0.5 MG IVP ×3 (06:02→18:33)
[2020-12-28 06:35] LABS: Basophils # 0.1 10^3/uL (0.0-0.1); Basophils % 0.5 %; Eosinophils # 0.5 10^3/uL (0.0-0.8); Eosinophils % 4.2 %; Hematocrit 45.5 % (42.0-52.0); Hemoglobin 15.3 g/dL (11.7-16.6); Lymphocytes % 18.6 %; Mean Corpuscular HGB Conc 33.6 g/dL (30.0-36.0); Mean Corpuscular Hemoglobin 28.7 pg (28.0-34.0); Mean Corpuscular Volume 85.2 fL (80-94); Mean Platelet Volume 10.9 fL (7.4-10.4); Monocytes # 1.2 10^3/uL (0.2-0.9); Monocytes % 10.8 %; Neutrophils # 7.02 10^3/uL (1.8-7.7); Neutrophils % 64.4 %; Nucleated Red Blood Cells % 0 %; Platelet Count 257 10^3/cmm (130-400); Red Blood Count 5.34 10^6/uL (4.1-5.3); Red Cell Distribution Width 14.5 % (12.1-15.1); White Blood Count 10.9 10^3/uL (4.0-10.0)
[2020-12-28 06:39] LABS: Glucose Point of Care 235 mg/dL (70-110)
--- NOTE | 2020-12-28 06:45 | ECG_ITS ---
[facility] Test Date: 2020-12-28 Pat Name: Cornell Hein Department: Room: 251 Gender: Male Manager Insurance: : 1965 Requested By: Charles Baltazar Order Number: [id number] Neema MD: ALAN STAUFFER Interpretive Statements NAME OF STUDY: LEXISCAN SESTAMIBI STRESS TEST INDICATION: Chest Pain, NOTE: Please note that this is the electrocardiogram portion of the Lexiscan/Sestamibi stress test. The perfusion scan will be documented separately. DATA: Baseline heart rate was 91 beats per minute. Baseline blood pressure was 102/71 millimeters of mercury. Target heart rate was 166. Maximum heart rate achieved was 124. which was 74 % of the predicted target heart rate. Maximum blood pressure was 134/74 millimeters of mercury. The reason for ending the test was completion of the protocol. The patient did not experience any symptoms. ELECTROCARDIOGRAM: BASELINE: Sinus rhythm. Normal axis. Possible old anterior wall myocardial infarction due to poor R wave progression or lead placement, otherwise, no ST-T changes suggestive of ischemia noted. No arrhythmia noted. EXERCISE: After Lexiscan injection, no ST-T changes suggestive of ischemic noted. No arrhythmia noted. CONCLUSION: Please note due to baseline abnormality of the EKG specificity and sensitivity of the EKG portion of LexiScan MIBI stress test will be low 1. EKG not suggestive of ischemia 2. Lexiscan injection unremarkable. 3. Perfusion scan will be documented separately. Electronically Signed On 12-29-2020 20:29:44 CDT by ALAN STAUFFER [id number]
[2020-12-28 06:56] LABS: Anion Gap 12.2 (5-19); Blood Urea Nitrogen 18 mg/dL (6-20); Calcium 8.5 mg/dL (8.5-10.5); Carbon Dioxide 26 mmol/L (22-29); Chloride 98 mmol/L (98-107); Glomerular Filtration Rate 140.4 mL/min (90-130); Glucose 265 mg/dL (65-115); Magnesium 1.6 mg/dL (1.7-2.3); Osmolality Calculated 285 mOsm/kg (285-295); Potassium 4.2 mmol/L (3.5-5.1); Sodium 132 mmol/L (136-145)
[2020-12-28 06:58] LABS: Chol HDL Ratio 6.87 mg/dL (1.0-5.00); Cholesterol 206 mg/dL (0-200); HDL Cholesterol 30 mg/dL (60-100); LDL Cholesterol Calculated 117 mg/dL (50-129); Triglycerides 293 mg/dL (0-150)
[2020-12-28 07:49] LABS: Estmated Average Glucose 329; Hemoglobin A1C 13.1 % (4.0-6.0)
[2020-12-28] MEDS: ondansetron 2 mg/ML SDV 2 mL 4 MG IVP (08:10)
[2020-12-28] MEDS: regadenoson 0.4 Mg/5 ml Syringe IVP (08:10)
[2020-12-28] MEDS: clopidogrel 75 mg Tablet PO (09:14)
[2020-12-28] MEDS: aspirin 81 mg Chew Tablet PO (09:14)
[2020-12-28] MEDS: apixaban 5 mg Tablet PO (09:14)
[2020-12-28] MEDS: oxyCODONE-APAP 10-325 mg Tablet 1 TAB PO ×2 (09:14→14:04)
[2020-12-28] MEDS: pregabalin 150 mg Capsule 300 MG PO ×2 (09:14→18:08)
[2020-12-28] MEDS: atorvastatin 40 mg Tablet PO (09:14)
[2020-12-28] MEDS: insulin glargine 100 units/1 mL 20 UNIT SUBCUT ×2 (10:34→18:29)
--- NOTE | 2020-12-28 10:58 | ECG_ITS ---
[facility] ED Test Date: 2020-12-28 Pat Name: Cornell Hein Department: Room: 251 Gender: Male Application Assistant: : 1965 Requested By: Felipe Chowdhury Order Number: [id number] Neema MD: Maricarmen Oswald M.D. Measurements Intervals [place] Rate: 79 P: 19 NC: 148 QRS: -22 QRSD: 77 T: 86 QT: 329 QTc: 377 Interpretive Statements SINUS RHYTHM POSSIBLE ANTERIOR MYOCARDIAL INFARCTION [30 ms Q WAVE IN V3/V4, OR R < 0.2 mV IN V4], OF INDETERMINATE AGE Compared to ECG 12/27/2020 19:59:49 Myocardial infarct finding now present T-wave abnormality no longer present Electronically Signed On 01-02-2021 16:29:18 CDT by Maricarmen Oswald M.D. [id number]
[2020-12-28 11:15] LABS: Glucose Point of Care 265 mg/dL (70-110)
--- NOTE | 2020-12-28 16:22 | PM.CONSULT ---
Providers/Reason For Consult Consulting Physician/Specialty*: Cardiology Reason for Consult*: Continuous chest pains Attending Physician: Felipe Chowdhury MD History of Present Illness History of Present Illness Cornell Hein is a 55 year old male past medical history significant for presented with chest pain radiating to shoulder and both arms. He was ruled out for acute coronary syndrome. Today stress test did not show significant ischemia. Patient continues to complaining of chest pain tightness radiating to neck and states that this pain is similar to when he had his heart attack or embolisms. He is on Eliquis and Plavix. He denies any shortness of breath. His chest pain started when he was trying to load his animals. He has a history of musculoskeletal injuries. He denies PND orthopnea presyncope syncope. Review of Systems General: Reports: 10 or more systems reviewed and unremarkable except in HPI and below Const: Denies: fever(s), chills or fatigue Eyes: Denies: change in vision, blurry vision or eye redness ENMT: Denies: throat pain, mouth pain, swelling of lips/tongue, ear or mastoid pain or nasal congestion Card: Reports: chest pain and palpitations; Denies: irregular heart rhythm, edema, dyspnea on exertion or orthopnea Resp: Denies: dyspnea, productive cough or non-productive cough GI: Denies: abdominal pain, nausea, diarrhea or GI cramping : Denies: flank pain, urinary frequency or urinary urgency Musc: Denies: neck pain, back pain, extremity pain, joint pain, joint redness, limited range of motion or muscle weakness Skin/Breast: Denies: rash, pruritus, erythema, skin pain or skin tenderness Neuro: Denies: headache(s), numbness in extremities, weakness in extremities, sensory changes, difficulty walking, dizziness, confusion or Slurred speech present Psych: Denies: anxiety or depression Endo: Denies: polyuria All/Imm: Denies: urticaria, throat swelling or tongue swelling Meds/Allergies Home Medications and Allergies Home Medications Medication Instructions Recorded Confirmed Last Taken Type apixaban [Eliquis] 5 mg PO BID 12/27/20 12/27/20 12/26/20 History aspirin 81 mg PO DAILY 12/27/20 12/27/20 12/26/20 History atorvastatin 40 mg PO DAILY 12/27/20 12/27/20 12/26/20 History clopidogrel [Plavix] 75 mg PO DAILY 12/27/20 12/27/20 12/26/20 History insulin glargine [Lantus U-100 20 unit SUBCUT BID 12/27/20 12/27/20 12/26/20 History Insulin] oxycodone-acetaminophen [Percocet] 1 tab PO TID PRN 12/27/20 12/27/20 Unknown History pregabalin [Lyrica] 300 mg PO BID 12/27/20 12/27/20 12/26/20 History ranitidine HCl 150 mg PO DAILY PRN 12/27/20 12/27/20 Unknown History Allergies Allergy/AdvReac Type Severity Reaction Status Date / Time fentanyl Allergy ALGY-Difficulty Verified 12/27/20 13:29 Breathing Iodinated Contrast Media Allergy ALGY-Rash Verified 02/24/20 20:47 morphine Allergy ALGY-Difficulty Verified 02/24/20 22:49 Breathing Current Medications Current Medications Generic Name Dose Route Start Last Admin Trade Name Freq PRN Reason Stop Dose Admin Apixaban 5 mg 12/28/20 09:00 12/28/20 09:14 Apixaban 5 Mg Tablet PO 5 mg BID CHECO Administration Aspirin 81 mg 12/28/20 09:00 12/28/20 09:14 Aspirin 81 Mg Chew Tablet PO 81 mg DAILY CHECO Administration Atorvastatin Calcium 40 mg 12/28/20 09:00 12/28/20 09:14 Atorvastatin 40 Mg Tablet PO 40 mg DAILY CHECO Administration Clopidogrel Bisulfate 75 mg 12/28/20 09:00 12/28/20 09:14 Clopidogrel 75 Mg Tablet PO 75 mg DAILY CHECO Administration Hydromorphone HCl 0.5 mg 12/27/20 20:34 12/28/20 12:18 Hydromorphone 1 Mg/Ml Inj 1 Ml IVP 0.5 mg Q8H PRN Administration CHEST PAIN Insulin Aspart 0 unit 12/27/20 21:00 12/28/20 12:17 Insulin Aspart 100 Unit/1 Ml SUBCUT 12 unit WM&BEDTIME CHECO Administration Protocol Insulin Glargine 20 unit 12/28/20 09:00 12/28/20 10:34 Insulin Glargine 100 Units/1 Ml SUBCUT 20 unit BID CHECO Administration Nitroglycerin 0.4 mg 12/27/20 13:35 12/27/20 13:50 Nitroglycerin 0.4 Mg Sublingual Tablet SUBLINGUAL 1 dose Q5M PRN Administration CHEST PAIN Ondansetron HCl 4 mg 12/28/20 06:50 12/28/20 08:10 Ondansetron 2 Mg/Ml Sdv 2 Ml IVP 4 mg Q2M PRN Administration NAUSEA Oxycodone/Acetaminophen 1 tab 12/27/20 20:44 12/28/20 14:04 Oxycodone-Apap 10-325 Mg Tablet PO 1 tab Q4H PRN Administration SEVERE PAIN Pregabalin 300 mg 12/28/20 09:00 12/28/20 09:14 Pregabalin 150 Mg Capsule PO 300 mg BID CHECO Administration PFSH Acute PFSH: Medical History (Updated 12/28/20 @ 17:28 by Connor Selby MD) Chest pain Diabetes Vitals/I&O/Wt Last Vital Signs Temp 98.1 F 12/28/20 15:32 Pulse 83 12/28/20 15:32 Resp 16 12/28/20 15:32 BP 113/74 12/28/20 15:32 Pulse Ox 95 12/28/20 15:32 12/28/20 12/28/20 12/28/20 06:59 14:59 22:59 Intake Total 960 / 960 Output Total 500 / 1000 Balance -500 / -760 960 / 960 Weight last 48 hrs Weight 160 lb Physical Exam Narrative: EXAM NARRATIVE: GENERAL: Patient is alert, awake and oriented x3. NECK: No jugular vein distension. HEENT: No cyanosis. No icterus. No pallor. HEART: Regular S1 and S2. No murmur, rub or gallop. LUNGS: Clear to auscultate bilaterally. ABDOMEN: Soft, nontender and nondistended. Positive bowel sounds. No guarding, rebound or tenderness. CENTRAL NERVOUS SYSTEM: Grossly nonfocal. EXTREMITIES: Lower extremities without edema bilaterally. Data Labs: Other Labs: SINUS RHYTHM POSSIBLE ANTERIOR MYOCARDIAL INFARCTION [30 ms Q WAVE IN V3/V4, OR R < 0.2 mV IN V4], OF INDETERMINATE AGE INTERPRETATION BASED ON A DEFAULT AGE OF 40 YEARS Compared to ECG 12/27/2020 19:59:49 Myocardial infarct finding now present T-wave abnormality no longer present A&P Assessment and plan (1) Chest pain: Patient has extensive history of coronary artery disease including CABG peripheral arterial disease worsening of chest pain and recurrence despite of negative stress test raises some question for coronary versus musculoskeletal however it is very difficult to say with surety since patient has high risk profile and he is very active in his lifestyle I will further explore this with left heart cath. I will move him to the cardiac floor he will be monitored on telemetry continue anticoagulation in the form of Lovenox use nitro drip and check troponin. If he continues to have more pain I may will proceed with left heart catheter earlier otherwise since he is stable in general we may will proceed with left heart cath in the morning. Patient has been explained all risk benefit and alternative for the procedure he understand the risk of urgent emergent bypass surgery major minor bleed arrhythmia stroke and contrast-induced nephropathy. He would like to proceed with it.. Status: Acute Qualifiers: Chest pain type: precordial pain Qualified Code(s): R07.2 - Precordial pain (2) Diabetes: Insulin will be continued Status: Acute (3) History of pulmonary embolism: Continue anticoagulation Eliquis for left heart cath and bridged with Lovenox. Status: Acute Consult Attestations Medical Necessity Statement: I am expecting his stay to cross more than 2 midnights. Coding Level of Care Code New Pt Acute [employer] Patient Type New History Detailed Exam Detailed Medical Decision Making Moderate Complexity Diagnoses Chest pain R07.2 Chest pain type: precordial pain Diabetes E11.9 History of pulmonary embolism Z86.711
[2020-12-28 17:14] LABS: Glucose Point of Care 237 mg/dL (70-110)
--- NOTE | 2020-12-28 18:10 | PM.PN ---
Subjective Subjective: Interval history: Patient was seen this morning, he is doing well, he has still has complaints of chest pain, he is back from a stress test, eating a sandwich, chest pain is substernal, radiating to the right neck Vitals/I&O/Wt Last Vital Signs Temp 98.1 F 12/28/20 15:32 Pulse 83 12/28/20 15:32 Resp 16 12/28/20 15:32 BP 113/74 12/28/20 15:32 Pulse Ox 95 12/28/20 15:32 12/28/20 12/28/20 12/28/20 06:59 14:59 22:59 Intake Total 960 / 960 Output Total 500 / 1000 400 / 400 Balance -500 / -760 960 / 960 -400 / 560 Weight last 48 hrs Weight 72.575 kg Physical Exam Const: COMMON NORMALS: no acute distress and patient oriented x3 Resp: COMMON NORMALS: normal respiratory effort, No retractions, No use of accessory muscles and clear to auscultation bilaterally AUSCULTATION: clear to auscultation bilaterally Cardio: COMMON NORMALS: regular rate, regular rhythm, S1 normal heart sound present and S2 normal heart sound present RATE: regular rate RHYTHM: regular rhythm HEART SOUNDS: S1 normal heart sound present and S2 normal heart sound present GI: COMMON NORMALS: Normal to inspection, nondistended, normoactive bowel sounds present, Soft to palpation and non-tender PALPATION: Yes Soft to palpation Extremity: COMMON NORMALS: no pedal edema Neuro: COMMON NORMALS: patient oriented x3 Psych: COMMON NORMALS: mental status grossly normal Data : 12/28/20 06:17 12/28/20 06:17 A&P Assessment and plan (1) Chest pain: Status: Acute Qualifiers: Chest pain type: precordial pain Qualified Code(s): R07.2 - Precordial pain (2) CAD (coronary artery disease): Status: Acute (3) Diabetes: Status: Acute Additional A&P Information 55 yo male with pmh of DVT, CAD presents to ER with complaints of chest pain. He has multiple comorbidities and risk factors. #Chest pain #CAD #DM #history of DVT #history of LE weakness 1. admit for observation 2. Status post stress test 3. PRN analgesics 4. asa, statin, eliquis 5. fsbs, ssi 6. Will discuss with cardiology 7. 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
--- NOTE | 2020-12-28 18:54 | NMCV_ITS ---
NM milly perf SPECT r/s* [id number] Cornell Hein Age: 55 Gender: M : 1965 Exam Date: 12/28/2020 07:08 Ordering Phys: Charles Baltazar MD Technologist: BEBETO Ovalle Exam Location: [facility] Indications: CHEST PAIN STRESS TEST Please see separate stress test report in [facility] for full findings IMAGE PROTOCOL Rest/Stress 1 Lexiscan Day Radiopharmaceutical Dose (mCi) Administration Site Administered by Rest: Tc-99m 10.8 IV BEBETO Diaz Sestamibi Stress:Tc-99m 32.7 IV BEBETO Diaz Sestamibi Rest: 28-Dec-2020 60 Discovery 630 Stress: 28-Dec-2020 30 Discovery 630 0.4mg Lexiscan. Images obtained in supine and prone position. SPECT RESULTS Technical Quality: Excellent Raw Data Analysis: Normal Image Corrections: No attenuation or motion correction applied Summed Stress Score: 2 Summed Rest Score: 6 Summed Difference Score: 0 PERFUSION FINDINGS There is a small sized, mostly fixed perfusion defect in the apical, apial septal cantrell. This improves with stress, likely attenuation artifact, less likely prior infarct. No evidence of ischemia. FUNCTIONAL RESULTS (calculated via Gated SPECT) Stress Image LV EF (%): 48 Stress EDV (mL):89 TID: 0.98 Stress ESV (mL):46 FUNCTIONAL FINDINGS: LV systolic function is mildly reduced with EF of 48%. Mild global hypokinesis IMPRESSIONS 1. Abnormal myocardial perfusion imaging with small sized, mostly fixed perfusion defect in the apical, apial septal cantrell. This improves with stress, likely attenuation artifact, less likely prior infarct. No evidence of ischemia. 2. LV systolic function is mildly reduced with EF of 48%. Mild global hypokinesis Alex Álvarez MD (Electronically Signed) Final Date: 31 December 2020 18:45 S
[2020-12-28 20:10] LABS: Troponin T (5th) Once 17 ng/L (0-15)
[2020-12-28] MEDS: oxyCODONE-APAP 5-325 mg Tablet 1 TAB PO (20:16)
[2020-12-28 21:23] LABS: Glucose Point of Care 172 mg/dL (70-110)
--- NOTE | 2020-12-28 22:44 | PC.NURSE ---
Patient transferred from Med/Surg @ 2033. Report received Digna VILLEGAS. Patient is A & O x4 with numerous C/O of his pain medication being changed. patient is refusing Nitro drip stating that shit doesn't work for me, this is not the first time I've been through this I spoke to Dr. Montalvo about patient's pain medication complaints and received a VORB to give Toradol 15mg IVP now and again in 6 hours if needed. Patient refused the Toradol, stating he was allergic. Patient states he probably will not go through with the Cath procedure in the morning. I stressed the importance of the procedure especially with his extensive heart history. Patient stated that if he decides to leave he will just go to his regular hospital. Nurse will continue to encourage patient to have cath procedure in the morning.
[2020-12-29] VITALS (63 sets, daily range): BP systolic 108–142; BP diastolic 65–91; PULSE 20–104; RESP 14–23; TEMP 36.6–36.9; O2SAT 92–100; BMI 25.8
--- NOTE | 2020-12-29 04:14 | PC.NURSE ---
Dilaudid 0.5 mg wasted because patient has no IV access. Wasted and witnessed by Stephanie Gil RN. Nurse will give IV pain medication once IV access has been established.
[2020-12-29] MEDS: HYDROmorphone 1 mg/mL INJ 1 mL 0.5 MG IVP ×2 (06:04→15:23)
--- NOTE | 2020-12-29 06:25 | XACV_ITS ---
Exam Room: [facility] Ht: 168 cm Wt: 73 kg BSA: 1.85 m2 Gender: Male : 1965 Any Known Allergies: Other Exam Priority: Routine Procedure(s): Procedure Description: Diagnostic procedure Procedure Description: Left Heart Catheterization Diagnostic Cath Status: Elective Diagnostic Findings * Left Main has no disease. * Circumflex has no disease. * Proximal Left Anterior Descending: total occlusion, SWATHI: 0 flow. * Left Internal Mammary Artery to Mid Left Anterior Descending graft: patent. * Mid Right Coronary Artery: obstructive 60% stenosis, SWATHI: 3 flow. * Ascending Aorta to 1st Diagonal graft: patent. * Two grafts visualized. * Coronary angiography shows left dominance. Conclusions 1. There is total occlusion coronary artery disease with two vessel disease. 2. Two coronary grafts visualized: all grafts patent. 3. Patient has prior CABG. Recommendations * Continue current medical management and risk factor modification. Clinical Evaluation EBL: 5mL-10mL Procedural Details Procedure Consent Obtained. Admit Source: In Patient. Pre-Procedure Time Out. Identified patient by full name and date of as verbalized by the patient/guarantor. Does the consent match the physician's order: Yes. Accurate & Complete Informed Consent: Yes. Inpatient/Outpatient History & Physical on Chart: Yes. If H&P is completed, is and addenduem needed: Yes; If yes, is the addendum complete: N/A. Visualize and Verify Site with Patient/Guarantor: N/A. Relevant Radiology Images available: N/A. Pre-op teaching completed and patient verbalized understanding. The risks, benefits, and alternatives of sedation and/or procedure were discussed by physician. The patient agrees to continue. Procedure started. [facility] Clinical Fraility Score: 3: Managing Well. 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 Chest Pain Symptom Assessment: Typical Angina Symptoms. Cardiovascular Instability: No,. Correct patient, site and procedure confirmed by cath team. PERRLA. Strong, equal hand sports medicine trainer bilaterally. Lungs clear x 5 lobes. IV Site on Arrival: 20 gauge in the left forearm. Oxygen started at 2liters/min via nasal canula. bilateral groins was prepped with chloroprep then draped in the usual sterile fashion. Physician notified. Baseline sample Acquired. HR: 80 BPM. Physician arrived. Physician scrubbed in. Immediate Pre-Procedure Time Out. Correct Patient: Yes; Correct Procedure: Yes; Correct Site: Yes; Correct Patient Position: Yes; Correct Supplies: Yes; Dried Flammable Prep: Yes; Blood Products Available: NA;. Lidocaine 1% infiltrated to the right groin. Arterial access obtained with micropuncture set. A 5 micronesian JL4 catheter in over wire. wire out. Multiple views taken of left coronary artery. Catheter out. A 5 micronesian JR4 catheter in over wire. Multiple views taken of right coronary artery. checking grafts at this time. redirecting to the LEVI. LEVI to LAD visualized. Catheter out. handinjection performed. Sheath(s) sutured into position with 2-0 silk and sterile 4x4's and Op-site applied over the site. No oozing or signs and symptoms of hematoma noted. Post Procedure: Pulses reassessed and unchanged. PERRLA. Strong, equal hand sports medicine trainer bilaterally. No VTE prophylaxis required. Medication's Wasted: Heparin = 4000 units. Total IV fluids: 38 mL. Contrast type used: Omnipaque 300 mgI/mL, 500 mL bottle. Contrast Material : Omnipaque 128 ml. A Suture was successful obtaining hemostatsis at the Right Femoral artery insertion site. Post-op diagnosis: severe CAD, patent LEVI to LAD, patent SVG to Diag. Complications: none. Estimated blood loss: 5mL-10mL. Procedure completed. Patient transferred by bed to 1st floor. Vital chart was stopped. Access Site Site: Right Femoral artery Sheath Size: 6 Fr Hemostasis Method: Suture Hemostasis Success: Successful Procedure Medications Start: 8:56 AM Stop: 8:56 AM Medication: Versed Amount: 2 mg Route: I.V. Start: 9:01 AM Stop: 9:01 AM Medication: Benadryl Amount: 50 mg Route: I.V. Start: 9:01 AM Stop: 9:01 AM Medication: Solu-Medrol (methylprednisolone) Amount: 125 mg Route: I.V. Start: 9:04 AM Stop: 9:04 AM Medication: Versed Amount: 2 mg Route: I.V. I, the attending physician, have reviewed and verified all procedure medications. Yes, all medications given per verbal order History/Risk Factors Myocardial Infarction (SD): Yes Prior Interventions CABG: Yes Report Signatures Finalized by Connor Selby MD on 12/29/2020 02:30 PM
[2020-12-29 06:49] LABS: Basophils # 0.1 10^3/uL (0.0-0.1); Basophils % 0.7 %; Eosinophils # 0.6 10^3/uL (0.0-0.8); Eosinophils % 4.6 %; Hematocrit 44.5 % (42.0-52.0); Hemoglobin 14.4 g/dL (11.7-16.6); Lymphocytes # 2.1 10^3/uL (0.8-4.8); Lymphocytes % 16.4 %; Mean Corpuscular HGB Conc 32.4 g/dL (30.0-36.0); Mean Corpuscular Hemoglobin 28.5 pg (28.0-34.0); Mean Corpuscular Volume 88.1 fL (80-94); Mean Platelet Volume 10.9 fL (7.4-10.4); Monocytes # 1.3 10^3/uL (0.2-0.9); Monocytes % 9.7 %; Neutrophils # 8.69 10^3/uL (1.8-7.7); Neutrophils % 67.1 %; Nucleated Red Blood Cells % 0 %; Platelet Count 280 10^3/cmm (130-400); Red Blood Count 5.05 10^6/uL (4.1-5.3); Red Cell Distribution Width 14.6 % (12.1-15.1)
[2020-12-29 06:55] LABS: Glucose Point of Care 226 mg/dL (70-110)
[2020-12-29 07:11] LABS: Alanine Aminotransferase 11 U/L (0-41); Alkaline Phosphatase 117 IU/L (40-130); Anion Gap 12.3 (5-19); Aspartate Amino Transferase 11 U/L (0-40); Blood Urea Nitrogen 21 mg/dL (6-20); Calcium 8.7 mg/dL (8.5-10.5); Carbon Dioxide 25 mmol/L (22-29); Chloride 94 mmol/L (98-107); Creatinine Clr Calc Pharmacy 114.8544; Globulin 2.9 g/dL (1.3-4.6); Glomerular Filtration Rate 117.5 mL/min (90-130); Glucose 241 mg/dL (65-115); Magnesium 1.8 mg/dL (1.7-2.3); Osmolality Calculated 275 mOsm/kg (285-295); Phosphorus 3.2 mg/dL (2.5-4.5); Potassium 4.3 mmol/L (3.5-5.1); Sodium 127 mmol/L (136-145); Total Bilirubin 0.2 mg/dL (0.15-1.2); Total Protein 5.9 g/dL (6.6-8.7)
[2020-12-29] MEDS: ondansetron 2 mg/ML SDV 2 mL 4 MG IVP (08:23)
[2020-12-29] MEDS: atorvastatin 40 mg Tablet PO (08:24)
[2020-12-29] MEDS: aspirin 81 mg Chew Tablet PO (08:24)
[2020-12-29] MEDS: clopidogrel 75 mg Tablet PO (08:24)
[2020-12-29] MEDS: diphenhydrAMINE 50 mg Capsule PO (08:25)
[2020-12-29] MEDS: pregabalin 150 mg Capsule 300 MG PO ×2 (08:25→17:20)
[2020-12-29] MEDS: sodium chloride 0.9% 1,000 ML 50 ML IV (08:26)
--- NOTE | 2020-12-29 08:56 | W.PM.OPSUD ---
Surgery/Procedure H&P Update DATE OF PROCEDURE: December 29, 2020 DATE H&P PERFORMED: 12/28/20 PLANNED PROCEDURE: Operation Date: 12/29/20 08:30 Proposed Procedures p Cardiac Catheterization(Left) - Connor Selby MD
--- NOTE | 2020-12-29 10:47 | ANES.PROC ---
Anesthesia Procedures Procedure/Date: 12/29/20 Procedure Narrative: ANESTHESIA CONSULTED FOR IV START. MULTIPLE ATTEMPTS, SUCCESSFUL IV 22G RIGHT HAND Other Information: IV START
--- NOTE | 2020-12-29 10:50 | PC.NURSE ---
Sheath Removal Note 6 fr femoral sheath in the right groin was removed by this nurse. Cath tip intact. Manual pressure held times 20 minutes with no bleeding or hematoma noted. Groin soft. Site verified with BAKARI Hauser.
[2020-12-29 11:31] LABS: Glucose Point of Care 212 mg/dL (70-110)
--- NOTE | 2020-12-29 11:46 | PM.PN ---
Subjective Subjective: Interval history: S/p chronically occluded LAD and nonobstructive small nondominant RCA left main and left circumflex did not show significant stenosis. Saphenous venous graft to diagonal was patent, LEVI to LAD was patent. Patient has severe peripheral vascular disease he was noted to have chronically occluded right SFA Vitals/I&O/Wt Last Vital Signs Temp 98.1 F 12/29/20 07:11 Pulse 82 12/29/20 07:11 Resp 20 H 12/29/20 07:11 BP 116/72 12/29/20 07:11 Pulse Ox 96 12/29/20 07:11 12/28/20 12/29/20 12/29/20 22:59 06:59 14:59 Output Total 675 / 675 600 / 1275 650 / 650 Balance -675 / 285 -600 / -315 -650 / -650 Weight last 48 hrs Weight 160 lb Physical Exam Narrative: EXAM NARRATIVE: GENERAL: Patient is alert, awake and oriented x3. NECK: No jugular vein distension. HEENT: No cyanosis. No icterus. No pallor. HEART: Regular S1 and S2. No murmur, rub or gallop. LUNGS: Clear to auscultate bilaterally. ABDOMEN: Soft, nontender and nondistended. Positive bowel sounds. No guarding, rebound or tenderness. CENTRAL NERVOUS SYSTEM: Grossly nonfocal. EXTREMITIES: Lower extremities without edema bilaterally. Data : 12/29/20 06:02 12/29/20 06:02 A&P Assessment and plan (1) Chest pain: Patient has extensive history of coronary artery disease including CABG peripheral arterial disease worsening of chest pain and recurrence despite of negative stress test raises some question for coronary versus musculoskeletal however it is very difficult to say with surety since patient has high risk profile and he is very active in his lifestyle I will further explore this with left heart cath. I will move him to the cardiac floor he will be monitored on telemetry continue anticoagulation in the form of Lovenox use nitro drip and check troponin. If he continues to have more pain I may will proceed with left heart catheter earlier otherwise since he is stable in general we may will proceed with left heart cath in the morning. Patient has been explained all risk benefit and alternative for the procedure he understand the risk of urgent emergent bypass surgery major minor bleed arrhythmia stroke and contrast-induced nephropathy. He would like to proceed with it. As above patient had patent both grafts including SVG to diagonal and LEVI to LAD. Patient has known occluded LAD and nondominant RCA. Left main and circumflex were without disease. Most likely his chest pain is musculoskeletal and not noncardiac. Advised once complete back rest can be discharged home. Status: Acute Qualifiers: Chest pain type: precordial pain Qualified Code(s): R07.2 - Precordial pain (2) Diabetes: Insulin will be continued Status: Acute (3) History of pulmonary embolism: Continue anticoagulation Eliquis for left heart cath and bridged with Lovenox. 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
--- NOTE | 2020-12-29 12:31 | PM.DCS ---
Discharge Providers Date of Admission: 12/27/20 17:20 Date of Discharge: December 29, 2020 Attending Provider at Admission: Charles Baltazar MD Attending Provider at Discharge: Felipe Chowdhury MD Diagnoses at Discharge Discharge Diagnosis (1) Chest pain: Status: Acute Qualifiers: Chest pain type: precordial pain Qualified Code(s): R07.2 - Precordial pain (2) Diabetes: Status: Acute (3) History of pulmonary embolism: Status: Acute Reason for Visit Reason for Visit: chest pain Hospital Course Hospital Course this is a 55-year-old male with a past medical history of DVT on Eliquis, CAD status post CABG in 2018, insulin-dependent type 2 diabetes, who presents [facility] for chest pain For his chest pain, patient's initial EKG had no acute ST-T wave changes, no significant delta troponin, cardiac stress test showed low probability of CAD, however patient continued to have anterior chest pain, cardiology was consulted, patient underwent cardiac coronary angiogram which did not show any obstructive CAD, no chest pain by the time of discharge, likely musculoskeletal in nature, patient was discharged home Physical Exam Const: COMMON NORMALS: no acute distress and patient oriented x3 Resp: COMMON NORMALS: normal respiratory effort, No retractions, No use of accessory muscles and clear to auscultation bilaterally AUSCULTATION: clear to auscultation bilaterally Cardio: COMMON NORMALS: regular rate, regular rhythm, S1 normal heart sound present and S2 normal heart sound present RATE: regular rate RHYTHM: regular rhythm HEART SOUNDS: S1 normal heart sound present and S2 normal heart sound present GI: COMMON NORMALS: Normal to inspection, nondistended, normoactive bowel sounds present, Soft to palpation and non-tender PALPATION: Yes Soft to palpation Extremity: COMMON NORMALS: no pedal edema Neuro: COMMON NORMALS: patient oriented x3 Psych: COMMON NORMALS: mental status grossly normal Discharge Data Data Completed and Pending: Completed Studies During Hospitalization Category Date Time Status Sestamibi Stress Test Request Routi ne Exams 12/28/20 06:45 Draft XR chest 1V mega ble [id number] Stat Exams 12/27/20 13:35 Completed Pending at discharge Category Date Time Status [employer] request for service Routin e Exams 12/29/20 06:25 Ordered Sestamibi Stress Test Request Routi ne Exams 12/27/20 18:54 Stop Req Basic Metabolic P vimal AM LABS Lab 12/30/20 04:00 Ordered Complete Blood Co unt w/Auto AM LABS Lab 12/30/20 04:00 Ordered Complete Blood Co unt w/Auto AM LABS Lab 12/30/20 04:00 Ordered Complete Blood Co unt w/Auto AM LABS Lab 12/31/20 04:00 Ordered Comprehensive Met abolic Panel AM LA BS Lab 12/30/20 04:00 Ordered Comprehensive Met abolic Panel AM LA BS Lab 12/31/20 04:00 Ordered Magnesium AM LABS Lab 12/30/20 04:00 Ordered Magnesium AM LABS Lab 12/30/20 04:00 Ordered Magnesium AM LABS Lab 12/31/20 04:00 Ordered Phosphorus AM LAB S Lab 12/30/20 04:00 Ordered Phosphorus AM LAB S Lab 12/31/20 04:00 Ordered NM milly perf SPECT r/s* [id number] Routin e Nuc Med 12/28/20 18:54 Taken Labs from last 24 hours 12/29/20 12/29/20 12/29/20 11:23 06:50 06:02 WBC RBC Hgb Hct MCV MCH MCHC RDW Plt Count MPV Neut % (Auto) Lymph % (Auto) [place] % (Auto) Eos % (Auto) Baso % (Auto) Neut # (Auto) Lymph # (Auto) [place] # (Auto) Eos # (Auto) Baso # (Auto) Nucleated RBC % (a uto) Nucleated RBCs # Sodium 127 L Potassium 4.3 Chloride 94 L Carbon Dioxide 25 Anion Gap 12.3 BUN 21 H Creatinine 0.7 GFR Calculation 117.5 Glucose 241 H POC Glucose 212 H 226 H Calculated Osmolal ity 275 L Calcium 8.7 Phosphorus 3.2 Magnesium 1.8 Total Bilirubin 0.2 AST 11 ALT 11 Alkaline Phosphata se 117 Troponin T Gen 5 n g/L Total Protein 5.9 L Albumin 3.0 L Globulin 2.9 12/29/20 12/28/20 12/28/20 06:02 21:17 19:23 WBC 13.0 H RBC 5.05 Hgb 14.4 Hct 44.5 MCV 88.1 MCH 28.5 MCHC 32.4 RDW 14.6 Plt Count 280 MPV 10.9 H Neut % (Auto) 67.1 Lymph % (Auto) 16.4 [place] % (Auto) 9.7 Eos % (Auto) 4.6 Baso % (Auto) 0.7 Neut # (Auto) 8.69 H Lymph # (Auto) 2.1 [place] # (Auto) 1.3 H Eos # (Auto) 0.6 Baso # (Auto) 0.1 Nucleated RBC % (a uto) 0 Nucleated RBCs # 0.0 Sodium Potassium Chloride Carbon Dioxide Anion Gap BUN Creatinine GFR Calculation Glucose POC Glucose 172 H Calculated Osmolal ity Calcium Phosphorus Magnesium Total Bilirubin AST ALT Alkaline Phosphata se Troponin T Gen 5 n g/L 17 H Total Protein Albumin Globulin 12/28/20 12/28/20 18:47 17:01 WBC RBC Hgb Hct MCV MCH MCHC RDW Plt Count MPV Neut % (Auto) Lymph % (Auto) [place] % (Auto) Eos % (Auto) Baso % (Auto) Neut # (Auto) Lymph # (Auto) [place] # (Auto) Eos # (Auto) Baso # (Auto) Nucleated RBC % (a uto) Nucleated RBCs # Sodium Potassium Chloride Carbon Dioxide Anion Gap BUN Creatinine GFR Calculation Glucose POC Glucose 237 H Calculated Osmolal ity Calcium Phosphorus Magnesium Total Bilirubin AST ALT Alkaline Phosphata se Troponin T Gen 5 n g/L Cancelled Total Protein Albumin Globulin Vitals: Last Vital Signs Temp 98.1 F 12/29/20 07:11 Pulse 82 12/29/20 07:11 Resp 20 H 12/29/20 07:11 BP 116/72 12/29/20 07:11 Pulse Ox 96 12/29/20 07:11 Discharge Plan Discharge Patient Disposition: Home Condition: Stable Prescriptions: Continued atorvastatin 40 mg Tablet 40 mg PO DAILY RF: 0 Lantus U-100 Insulin 100 unit/mL Solution 20 unit SUBCUT BID RF: 0 Plavix 75 mg Tablet 75 mg PO DAILY RF: 0 Percocet 5-325 mg Tablet 1 tab PO TID PRN (Reason: Pain) RF: 0 ranitidine HCl 150 mg Tablet 150 mg PO DAILY PRN (Reason: Heartburn) RF: 0 aspirin 81 mg Tablet,Chewable 81 mg PO DAILY RF: 0 Lyrica 300 mg Capsule 300 mg PO BID RF: 0 Eliquis 5 mg Tablet 5 mg PO BID RF: 0 Discharge Orders: Discharge Order (Routine); Ordered 12/29/20 Ordered By: Felipe Chowdhury Referrals: Connor Selby MD [Physician] - 1 month Discharge Diet: Cardiac Discharge Activity: Resume usual activity Patient Instructions: Opioid Safety Activity Restrictions/Additional Instructions: -If you have recurrent chest pain go to the emergency room -Follow-up with primary in 1 week Discharge Attestations Time Spent in Discharge Care*: less than 30 min Quality Metrics Clinical Quality Measures During this hospital stay, did patient experience: None Coding Level of Care Code Acute Chg FW DC note Diagnoses Chest pain R07.2 Chest pain type: precordial pain Diabetes E11.9 History of pulmonary embolism Z86.712
[2020-12-29 16:45] LABS: Glucose Point of Care > 600 mg/dL (70-110)
[2020-12-29 17:05] LABS: Glucose Point of Care 578 mg/dL (70-110)
[2020-12-29] MEDS: apixaban 5 mg Tablet PO (17:20)
[2020-12-29] MEDS: oxyCODONE-APAP 5-325 mg Tablet 1 TAB PO (17:20)
[2020-12-29] MEDS: insulin glargine 100 units/1 mL 20 UNIT SUBCUT (18:45)
[2020-12-29 18:58] LABS: Glucose 720 mg/dL (65-115)
[2020-12-29 21:19] LABS: Glucose 589 mg/dL (65-115)
[2020-12-29 23:21] LABS: Glucose Point of Care 383 mg/dL (70-110)
--- NOTE | 2020-12-29 23:45 | PC.NURSE ---
Bedside report received from Murtaza VILLEGAS. Patient is A & O x4. Incision to right groin, dressing intact, no hematoma present. Patient does not C/O of pain to groin site. Aggravated that he was unable to go home due to elevated glucose level.
[2020-12-30 02:11] VITALS: RESP 18; O2SAT 96
[2020-12-30] MEDS: oxyCODONE-APAP 5-325 mg Tablet 1 TAB PO (02:11)
[2020-12-30 04:00] VITALS: BP 107/59; PULSE 87; RESP 13; TEMP 36.5; O2SAT 97
[2020-12-30 05:43] VITALS: PULSE 80
--- NOTE | 2020-12-30 06:06 | PC.NURSE ---
Patient refused to have AM labs drawn again, the first sample hemalized.
--- NOTE | 2020-12-30 06:31 | PC.NURSE ---
Patient refused AM accucheck
[2020-12-30 07:06] VITALS: BP 143/90; PULSE 112; RESP 14; TEMP 36.6; O2SAT 97
[2020-12-30 08:05] VITALS: PULSE 93; O2SAT 94
--- NOTE | 2020-12-30 08:39 | PM.PN ---
Subjective Subjective: Interval history: Patient was seen after his cardiac catheterization procedure, no chest pain, no shortness of breath, is ready to go home, just before discharge we checked patient's blood sugar it was greater than 600, advised him we will have to keep him overnight, get his blood sugars down hopefully discharge tomorrow morning Vitals/I&O/Wt Last Vital Signs Temp 97.8 F 12/30/20 07:06 Pulse 93 12/30/20 08:05 Resp 14 12/30/20 07:06 BP 143/90 12/30/20 07:06 Pulse Ox 94 12/30/20 08:05 12/29/20 12/30/20 12/30/20 22:59 06:59 14:59 Intake Total 620 / 740 150 / 890 Output Total 2325 / 2975 900 / 3875 400 / 400 Balance -1705 / -2235 -750 / -2985 -400 / -400 Weight last 48 hrs Weight 72.575 kg Physical Exam Const: COMMON NORMALS: no acute distress and patient oriented x3 Resp: COMMON NORMALS: normal respiratory effort, No retractions, No use of accessory muscles and clear to auscultation bilaterally AUSCULTATION: clear to auscultation bilaterally Cardio: COMMON NORMALS: regular rate, regular rhythm, S1 normal heart sound present and S2 normal heart sound present RATE: regular rate RHYTHM: regular rhythm HEART SOUNDS: S1 normal heart sound present and S2 normal heart sound present GI: COMMON NORMALS: Normal to inspection, nondistended, normoactive bowel sounds present and Soft to palpation PALPATION: Yes Soft to palpation Extremity: COMMON NORMALS: no pedal edema Neuro: COMMON NORMALS: patient oriented x3 Psych: COMMON NORMALS: mental status grossly normal Data : 12/29/20 06:02 12/29/20 20:29 A&P Assessment and plan (1) Chest pain: Status: Acute Qualifiers: Chest pain type: precordial pain Qualified Code(s): R07.2 - Precordial pain (2) Diabetes: Status: Acute (3) History of pulmonary embolism: Status: Acute Additional A&P Information 55 yo male with pmh of DVT, CAD presents to ER with complaints of chest pain. He has multiple comorbidities and risk factors. #Chest pain #CAD #DM Hyperglycemia blood sugar in 600, recheck blood sugar, high-dose sliding scale, evening Lantus #history of DVT #history of LE weakness 1. admit for observation 2. Status post stress test, negative, still had chest pain, underwent cardiac catheterization did not show obstructive CAD 3. PRN analgesics 4. asa, statin, eliquis 5. fsbs, ssi Attestations Medical Necessity Statement*: Patient requires hospitalization for elevated blood sugar, chest pain Coding Level of Care Code Acute Polisher Dial for [facility] Fwd Diagnoses Chest pain R07.2 Chest pain type: precordial pain Diabetes E11.9 History of pulmonary embolism Z86.711
[2020-12-30 09:11] LABS: Glucose Point of Care 524 mg/dL (70-110)
[2020-12-30 09:11] LABS: Glucose Point of Care 399 mg/dL (70-110)
[2020-12-30] MEDS: pregabalin 150 mg Capsule 300 MG PO (09:11)
[2020-12-30] MEDS: clopidogrel 75 mg Tablet PO (09:11)
[2020-12-30] MEDS: atorvastatin 40 mg Tablet PO (09:11)
[2020-12-30] MEDS: aspirin 81 mg Chew Tablet PO (09:11)
[2020-12-30] MEDS: insulin glargine 100 units/1 mL 25 UNIT SUBCUT (09:12)
[2020-12-30] MEDS: apixaban 5 mg Tablet PO (09:19)
== END 2020-12-30 09:25 | disposition home or self-care (01) ==
LOC: ER 17:43 → MEDSURG 18:36 → CSU 12-28 20:42
PROVIDERS: Internal Medicine Cardiovascular Disease; Admitting Provider Internal Medicine; Emergency Provider Family Medicine; Visit Provider Family Medicine
DX: I25.10 Atherosclerotic heart disease of native coronary artery without angina pectoris (principal); R07.2 Precordial pain; E11.9 Type 2 diabetes mellitus without complications; Z86.711 Personal history of pulmonary embolism; Z86.718 Personal history of other venous thrombosis and embolism; Z79.01 Long term (current) use of anticoagulants; Z95.1 Presence of aortocoronary bypass graft; Z79.4 Long term (current) use of insulin; Z79.82 Long term (current) use of aspirin
CPT/HCPCS: 36415; 36416; 71045; 78452; 80048; 80053; 80061; 81003; 82947; 82962; 83036; 83735; 83880; 84100; 84484; 85025; 85378; 85610; 87426; 93005; 93017; 93455; 96361; 96372; 96374; 96376; 99291; A9500; C1769; C1887; C1894; G0378; J1170; J1200; J1644; J1815 ×2; J2250; J2405; J2785; J2930; J7030; Q0163; Q9967